=== PATIENT | female | born 1990 | race Caucasian/White ===

== ENCOUNTER 2017-07-20 16:22 | Outpatient (CLI) | payer MEDICAID ==
[~2017-07-20] VITALS: Ht 147.3 cm; Wt 60.4 kg
[2017-07-20 16:40] VITALS: Ht 147.3 cm; Wt 60.4 kg
[2017-07-20 16:41] VITALS: BP 101/60; PULSE 70
[2017-07-20] MEDS ORDERED: PNV11TAB PO (16:43)
--- NOTE | 2017-07-20 17:39 | RADRPT ---
PROCEDURE: US OB biophysical profile. CLINICAL INDICATION: decreased movements TECHNIQUE: Multiple sonographic images of the pelvis were obtained. The images were reviewed on a PACS workstation. COMPARISON: No prior studies are available for comparison. FINDINGS: There is a single viable intrauterine gestation. Cardiac activity is present with 148 beats per min cristela. There is a vertex presentation. The placenta is anterior. There is no evidence of placental abruption. There is a normal amount of amniotic fluid with an TAYLOR = 11.7 cm. Biophysical profile: movement 2/2 tone 2/2. breathing 2/2 TAYLOR 2/2 Total 05/18 RPTAT: AA . IMPRESSION: Normal biophysical profile. . .Adrian Haq MD, MD Date Time Electronically viewed and signed by .Adrian Haq MD, MD on 07/20/2017 17:38 .S/
--- NOTE | 2017-07-20 19:37 | RADRPT ---
PROCEDURE: US OB. CLINICAL INDICATION: Small for gestational age TECHNIQUE: Multiple sonographic images of the uterus were obtained. The images were revi ewed on a PACS workstation. COMPARISON: No prior studies are available for comparison. FINDINGS: There is a single live intrauterine gestation. heart rate is 182 beats per minute. Measurements were made in order to determine age. The results are as follows: BPD = 8.62 cm. HC = 30.37 cm. AC = 30.08 cm. FL = 6.41 cm. Estimated weight is 2284 +/- 343 grams. LMP growth percentile is 13 %. Menstrual age by ultrasound dates is 33 weeks 6 days. The estimated date of delivery is 09/01/2017. Position is cephalic and placenta is anterior grade II. There is no evidence for an abruption or martín centa previa. IMPRESSION: 1. Single live intrauterine gestation of 33 weeks 6 days menstrual age by ultrasound dates. 2. The estimated date of delivery is 09/01/2017. RPTAT: QQ .Gilmer Coleman MD, Date Time Electronically viewed and signed by .Gilmer Coleman MD, on 07/20/2017 19:37 .R/
--- NOTE | 2017-07-20 20:46 | RADRPT ---
PROCEDURE: CERVICAL LENGTH ULTRASOUND CLINICAL INDICATION: labor at 35 weeks gestational age. TECHNIQUE: Trans-vaginal imaging of the cervical canal was performed utilizing montano-scale imaging. Sagittal and transverse images were obtained. Trans-abdominal images were also obtained. The joel ges were reviewed on a PACS workstation. COMPARISON: None. FINDINGS: There is a single live intrauterine . There is no placenta previa. The cervix is closed with a length of 2.7 cm. IMPRESSION: 1. Cervical length is 2.7 cm. RPTAT: QQ .Gilmer Coleman MD, MD Date Time Electronically viewed and signed by .Gilmer Coleman MD, on 07/20/2017 20:46 .R/
--- NOTE | 2017-07-20 21:19 | PN ---
Triage Information Date/Time 07/20/2017 Reason for visit: IUGR Weeks of Gestation 35 weeks /Para Diabetes: none Hypertention: none Objective Vital Signs Date Time Temp Pulse Resp B/P Pulse Ox O2 Delivery O2 Flow Rate FiO2 07/20/17 16:41 98.0 70 101/60 Heart Rate: 130's Heart Rate Comments Category I Contractions: 6-10 Minutes Apart Results/Medications Imaging Results BPP 05/18 Disposition: Discharge Assessment/Plan Antepartum Testing Reassuring Follow up in [facility] clinic on 07/23/2017 FABIO CHANG MD Jul 20, 2017 21:19
--- NOTE | 2017-07-21 01:52 | TRIAGE ---
OB Triage Datetime Report Generated by CPN: 07/21/2017 01:52 Datetime: 07/20/2017 21:12 Stage of : OB Triage Labor Evaluation Frequency: 2-4 Monitor Mode: External Duration (sec)2399: 40-120 Quality: Mild Pattern: Normal: <= 5 Contractions in 10 Minutes Resting Tone [place]: Relaxed Heart Rate FHR Baseline Rate: 135 Monitor Mode: External US FHR Baseline Changes: No Baseline Change Variability: Moderate 6-25 bpm Accelerations: 15X15 Decelerations: None Category: Category I Datetime: 07/20/2017 21:11 Stage of : OB Triage Datetime: 07/20/2017 21:00 Stage of : OB Triage Labor Evaluation Frequency: Irregular Monitor Mode: External Duration (sec)2399: 40-90 Quality: Mild Pattern: Normal: <= 5 Contractions in 10 Minutes Resting Tone [place]: Relaxed Heart Rate FHR Baseline Rate: 135 Monitor Mode: External US FHR Baseline Changes: No Baseline Change Variability: Moderate 6-25 bpm Accelerations: 15X15 Decelerations: None Category: Category I Datetime: 07/20/2017 20:18 Stage of : OB Triage Datetime: 07/20/2017 20:00 Stage of : OB Triage Labor Evaluation Frequency: Occasional Monitor Mode: External Duration (sec)2399: 40-80 Quality: Mild Pattern: Normal: <= 5 Contractions in 10 Minutes Resting Tone [place]: Relaxed Heart Rate FHR Baseline Rate: 135 Monitor Mode: External US Variability: Moderate 6-25 bpm Accelerations: 15X15 Decelerations: None Category: Category I Datetime: 07/20/2017 19:30 Stage of : OB Triage Assessment Type: Triage Maternal Assessment Level of Consciousness: Fully Conscious DTR's/Clonus: DTRs 2+; No Clonus Headache: Denies Blurred Vision: No Respiratory Effort: Unlabored; Regular Rhythm; Equal Expansion Breath Sounds, Left: Clear and Equal Breath Sounds, Right: Clear and Equal Nausea/Vomiting: Denies RUQ Epigastric Pain: Denies Lower Extremities Edema: None Degree: None Upper Extremities Edema: None Degree: None Facial Edema: None Temperature Route: Oral Fall Risk Assessment History of Falling: (0) No Secondary Diagnosis: (0) No Ambulatory Aid: (0) Bedrest/Nurse Assist IV Therapy: (0) No Gait: (0) Normal/Bedrest/Immobile Mental Status: (0) Oriented to Own Ability Fall Score: 0 Fall Risk Score Definition: No Risk: No action required Pain Assessment Pain Scale: 0 Pain Presence: None/Denies Pain Type: N/A Pain Assessment Comments: Pt denies any pain or abdominal cramping at this time. Datetime: 07/20/2017 19:29 Stage of : OB Triage Datetime: 07/20/2017 19:22 Stage of : OB Triage Datetime: 07/20/2017 19:20 Stage of : OB Triage Datetime: 07/20/2017 18:40 Stage of : OB Triage Datetime: 07/20/2017 17:31 Labor Evaluation Frequency: 4-10 Monitor Mode: External Duration (sec)2399: 40-60 Pattern: Normal: <= 5 Contractions in 10 Minutes Resting Tone [place]: Relaxed Heart Rate FHR Baseline Rate: 145 Monitor Mode: External US Variability: Moderate 6-25 bpm Accelerations: 15X15 Decelerations: None Category: Category I Pain Assessment Pain Scale: 0 Pain Presence: None/Denies Pain Type: N/A Pain Goal: 3 Pain Relief Measures: Comfort Measures Datetime: 07/20/2017 17:28 Labor Evaluation Frequency: 0 Monitor Mode: External Pattern: Normal: <= 5 Contractions in 10 Minutes Resting Tone [place]: Relaxed Heart Rate FHR Baseline Rate: 145 Monitor Mode: External US Variability: Moderate 6-25 bpm Accelerations: 15X15 Decelerations: None Category: Category I Pain Assessment Pain Scale: 0 Pain Presence: None/Denies Pain Type: N/A Pain Goal: 3 Pain Relief Measures: Comfort Measures Datetime: 07/20/2017 16:37 Stage of : OB Triage Assessment Type: Triage Maternal Assessment Level of Consciousness: Fully Conscious DTR's/Clonus: DTRs 2+; No Clonus Headache: Denies Blurred Vision: No Respiratory Effort: Unlabored; Regular Rhythm; Equal Expansion Breath Sounds, Left: Clear and Equal Breath Sounds, Right: Clear and Equal Nausea/Vomiting: Denies RUQ Epigastric Pain: Denies Facial Edema: None Temperature Route: Axillary Fall Risk Assessment History of Falling: (0) No Secondary Diagnosis: (0) No Ambulatory Aid: (0) Bedrest/Nurse Assist IV Therapy: (0) No Gait: (0) Normal/Bedrest/Immobile Mental Status: (0) Oriented to Own Ability Fall Score: 0 Fall Risk Score Definition: No Risk: No action required Labor Evaluation Frequency: 0 Monitor Mode: External Pattern: Normal: <= 5 Contractions in 10 Minutes Resting Tone [place]: Relaxed Heart Rate FHR Baseline Rate: 145 Monitor Mode: External US Variability: Moderate 6-25 bpm Decelerations: None Category: Category I Pain Assessment Pain Scale: 0 Pain Presence: None/Denies Pain Type: N/A Pain Goal: 3 Pain Relief Measures: Comfort Measures Datetime: 07/20/2017 16:27 Time of Arrival: 07/20/2017 16:15 EGA: 35.2 Arrived By: Ambulatory Arrived From: Other Unit in Hospital Chief Complaint: FROM NST FOR EXTENDED MONITORING, Movement: Present Contractions: Denies/Absent Rupture of Membranes: Denies Vaginal Bleeding: None Vaginal Discharge: Denies Recent Sexual Intercouse: Denies Abdominal Trauma: Not Applicable Patient Complaints: None Time Provider Notified: 07/20/2017 18:40 Provider Notified: Initial Plan: MONITOR, EFW, BPP
--- NOTE | 2017-07-22 14:54 | NSTRPT ---
NST Information Datetime Report Generated by CPN: 07/22/2017 14:54 Datetime: 07/20/2017 14:44 NST Information EGA: 35.2 Datetime: 07/20/2017 14:25 Test Number: 1 Time on Monitor: 07/20/2017 14:59 Time off Monitor: 07/20/2017 15:55 NST Duration (Min): 56 Reason for NST: IUGR Test and Monitor Explained: Monitor Explained; Test Explained; Verbalized Understanding Pulse: 64 Resp: 16 SBP: 97 DBP: 60 Test Evaluation NST Interventions: Reposition Patient Patient States Movement: Present Contraction Frequency: x3, denies FHR Baseline : 140 Variability: Moderate 6-25bpm Accelerations: 15X15 Decelerations: Late; Variable FHR Category: Category II NST Results: Non-Reactive Comments: To u/s, TAYLOR 13.2cm, cephalic strip reviewed by Dr. Canseco. Recommends extended monitoring in Triage. 1543-Report called t liyah Clark (covering Dr Peng), orders received. Report called to Glenis GARCIA. POC explained to pt. 1600 -Pt to triage, accomp by Jasmina Macias. Electronically Signed By E-Signature: with User ID: [id number]
== END 2017-07-20 21:28 | disposition home or self-care (01) ==
LOC: OBT 16:22 → L-D 16:24 → OBT 21:28
PROVIDERS: ATTEND Obstetrics & Gynecology
DX: O36.5930 Maternal care for other known or suspected poor fetal growth, third trimester, not applicable or unspecified (principal); Z3A.35 35 weeks gestation of pregnancy
CPT/HCPCS: 76815; 76817; 76818; Z7500; G0463

== ENCOUNTER 2017-07-31 13:27 | Outpatient (CLI) | payer MEDICAID ==
[~2017-07-31] VITALS: Ht 147.3 cm; Wt 61.8 kg
[~2017-07-31 13:27] MED LIST: PNV11TAB PO
[2017-07-31 13:32] VITALS: Ht 147.3 cm; Wt 61.8 kg
[2017-07-31 13:33] VITALS: BP 97/55; PULSE 71; RESP 16
--- NOTE | 2017-07-31 14:06 | RADRPT ---
PROCEDURE: US evaluation of amniotic fluid volume. CLINICAL INDICATION: Decreased motion. TECHNIQUE: Multiple sonographic images of the gravid uterus were obtained utilizing montano-scale joel ging. Sagittal and transverse images were obtained. The images were reviewed on a PACS workstation . TAYLOR was measured. COMPARISON: 07/20/2017. FINDINGS: There is a single live intrauterine . heart rate is 170 beats per minute. Position is cephalic. Placenta is anterior grade II with no abruption or previa. TAYLOR is 7.0 cm. (Normal = 5-20 cm.) IMPRESSION: 1. TAYLOR is 7.0 cm. RPTAT: QQ .Gilmer Coleman MD, Date Time Electronically viewed and signed by .Gilmer Coleman MD, on 07/31/2017 14:05 .R/
--- NOTE | 2017-07-31 14:28 | PN ---
Triage Information Date/Time July 31, 2017 Reason for visit: IUGR (17 by perinatologist for antepartum testing following antepartum testing ) Weeks of Gestation 36 weeks and 6 days /Para 3 para 2 Diabetes: none Hypertention: none Objective Vital Signs Date Time Temp Pulse Resp B/P Pulse Ox O2 Delivery O2 Flow Rate FiO2 07/31/17 13:33 98.0 71 16 97/55 Heart Rate: 150's Heart Rate Comments heart tones are reactive Contractions: None Exam Deferred Results/Medications Imaging Results TAYLOR is 7.0 cm. Disposition: Discharge Assessment/Plan We will follow with biweekly and on a stress test on by physical profile CATIA MOYA MD Jul 31, 2017 14:28
--- NOTE | 2017-07-31 14:34 | TRIAGE ---
OB Triage Datetime Report Generated by CPN: 07/31/2017 14:33 Datetime: 07/31/2017 14:21 Labor Evaluation Frequency: x1 Monitor Mode: External Duration (sec)2399: 70 Quality: Mild Pattern: Normal: <= 5 Contractions in 10 Minutes Resting Tone [place]: Relaxed Heart Rate FHR Baseline Rate: 145 Variability: Moderate 6-25 bpm Accelerations: 15X15 Decelerations: None Category: Category I Comments: reactive nst Pain Presence: None/Denies Pain Type: N/A Datetime: 07/31/2017 13:36 Assessment Type: Triage Maternal Assessment Level of Consciousness: Fully Conscious DTR's/Clonus: DTRs 2+; No Clonus Headache: Denies Blurred Vision: No Respiratory Effort: Unlabored; Regular Rhythm; Equal Expansion Breath Sounds, Left: Clear and Equal Breath Sounds, Right: Clear and Equal Nausea/Vomiting: Denies RUQ Epigastric Pain: Denies Lower Extremities Edema: None Degree: None Upper Extremities Edema: None Degree: None Facial Edema: None Fall Risk Assessment History of Falling: (0) No Secondary Diagnosis: (0) No Ambulatory Aid: (0) Bedrest/Nurse Assist IV Therapy: (0) No Gait: (0) Normal/Bedrest/Immobile Mental Status: (0) Oriented to Own Ability Fall Score: 0 Fall Risk Score Definition: No Risk: No action required Datetime: 07/31/2017 13:20 Time of Arrival: 07/31/2017 13:20 EGA: 36.6 Arrived By: Ambulatory Arrived From: Home Chief Complaint: f/u for nst and ashly due to questinable nst in nst clinic Movement: Present Contractions: Occasional Rupture of Membranes: Denies Vaginal Bleeding: None Vaginal Discharge: Denies Recent Sexual Intercouse: Denies Abdominal Trauma: Not Applicable Patient Complaints: None Time Provider Notified: 07/31/2017 14:11 Provider Notified: Datetime: 07/20/2017 21:12 Pain Assessment Pain Scale: 0 Pain Presence: None/Denies Pain Type: N/A Pain Assessment Comments: Pt continues to deny any pain or cramping Datetime: 07/20/2017 21:08 Stage of : OB Triage Datetime: 07/20/2017 19:30 Fall Score: 0 Fall Risk Score Definition: No Risk: No action required Datetime: 07/20/2017 16:37 Fall Score: 0 Fall Risk Score Definition: No Risk: No action required Datetime: 07/20/2017 16:27 EGA: 35.2
== END 2017-07-31 14:30 | disposition home or self-care (01) ==
LOC: OBT 13:27 → L-D 13:28 → OBT 14:30
PROVIDERS: ATTEND Obstetrics & Gynecology
DX: O36.8130 Decreased fetal movements, third trimester, not applicable or unspecified (principal); Z3A.36 36 weeks gestation of pregnancy
CPT/HCPCS: 76815; Z7500; G0463

== ENCOUNTER 2017-08-09 12:05 | Inpatient (IN) | payer MEDICAID ==
[~2017-08-09] VITALS: Ht 147.3 cm; Wt 61.5 kg
[2017-08-09 12:41] VITALS: Ht 147.3 cm; Wt 61.5 kg
[2017-08-09] MEDS: LACTATED RINGER'S 1,000 ML IV SCH ×2 (13:19→21:33)
[2017-08-09] MEDS ORDERED: METHYLERGONOVINE 0.2 MG INJ IM PRN (13:30)
[2017-08-09] MEDS ORDERED: MINERAL OIL LIGHT 10 ML VIAL TOP ONE (13:30)
[2017-08-09] MEDS ORDERED: OXYTOCIN 30 UNITS/LR 500 ML IV SCH ×2 (13:30)
[2017-08-09] MEDS ORDERED: MISOPROSTOL 200 MCG TAB PR PRN (13:30)
[2017-08-09] MEDS ORDERED: LIDOCAINE 1% (MPF) 30 ML INJ INJ PRN (13:30)
[2017-08-09] MEDS ORDERED: OXYTOCIN 30 UNITS/LR 500 ML IV PRN (13:30)
[2017-08-09] MEDS ORDERED: CARBOPROST 250 MCG INJ IM PRN (13:30)
[2017-08-09] MEDS ORDERED: BUTORPHANOL 2 MG INJ IV PRN (13:30)
--- NOTE | 2017-08-09 14:09 | HP ---
Date/Time of Note Date/Time of Note DATE: 08/09/17 TIME: 14:06 OB - History Hx of Present Free Text/Dictation Admitted for induction of labor per perinatologist at 38 weeks and 1 day because of decreased amniotic fluid Last Menstrual Period: Nov 16, 2016 Estimated Due Date: Aug 22, 2017 : 3 Para: 2 Care: Good Care Ultrasounds: Normal mid trimester US Obstetrical Complications: Growth Restriction Medical Complications: None Past Family/Social History * Past Medical, Surgical, Family and Obstetric Histories reviewed from chart. Blood Type: O+ Rubella: immune RPR/VDRL: Negative GBS Status: Positive HBsAG: Negative OB Admission Exam Physical Exam HEENT: WNL Heart: Rhythm Normal Lungs: Clear, Equal Abdomen: WNL Extremities: Normal Reflexes: Normal Cervical Dilatation: Fingertip Effacement: 0% Station: -3 Membranes: Intact Heart Rate: 140's Accelerations: Accelerations Present Decelerations: No Decelerations Varibility: Marked Contractions on Admission: None Last 72 hours Lab Results CBC & BMP 08/09/17 13:17 OB Assessment/Plan Reason for admission: induction of labor Other Assessment: 38 weeks and 1 day gestation Growth restricted infant Decrease amniotic fluid Other plan: Per perinatologist admitted for induction of labor CATIA MOYA MD Aug 09, 2017 14:09
[2017-08-09] MEDS ORDERED: AMPICILLIN 2 GM/NS (PMX) 100 ML IV ONE (14:30)
[2017-08-09 15:06] VITALS: BP 99/64; PULSE 75; RESP 18
[2017-08-09] MEDS: OXYTOCIN 30 UNITS/LR 500 ML IV SCH (16:01)
[2017-08-09] MEDS ORDERED: LACTATED RINGER'S 1,000 ML IV PRN (17:00)
[2017-08-09] MEDS: AMPICILLIN 1 GM/NS (PMX) 50 ML IV SCH ×2 (18:29→21:32)
[2017-08-10] MEDS: AMPICILLIN 1 GM/NS (PMX) 50 ML IV SCH ×6 (02:02→22:11)
[2017-08-10] MEDS: LACTATED RINGER'S 1,000 ML IV SCH ×2 (04:50→15:02)
[2017-08-10] MEDS: OXYTOCIN 30 UNITS/LR 500 ML IV SCH ×2 (06:00→15:03)
--- NOTE | 2017-08-10 14:21 | PN ---
Date/Time of Note Date/Time of Note DATE: 08/10/17 TIME: 14:18 OB Subjective Subjective Subjective No complaint of labor contractions OB Objective Objective Objective Vital signs stable General physical exam is unchanged Cervix is 50% on 2 cm present with vertex at -3 station OB Assessment/Plan Other Assessment: Growth restricted 38+ weeks Perinatologist recommend induction Decrease amniotic fluid Other plan: Restart Pitocin augmentation of labor CATIA MOYA MD Aug 10, 2017 14:21
[2017-08-11] MEDS: AMPICILLIN 1 GM/NS (PMX) 50 ML IV SCH ×5 (02:43→18:02)
[2017-08-11] MEDS: LACTATED RINGER'S 1,000 ML IV SCH ×5 (02:43→17:00)
[2017-08-11] MEDS ORDERED: FENTAnyl 2MCG/ML-ROPIV 0.2% 100 ML ONE (09:07)
[2017-08-11] MEDS ORDERED: ONDANSETRON 4 MG INJ IV PRN (09:30)
[2017-08-11] MEDS ORDERED: HYDROmorphONE 0.5 MG/0.5 ML SYG IV PRN ×2 (09:30)
[2017-08-11] MEDS ORDERED: DIPHENHYDRAMINE 50 MG INJ IV PRN (09:30)
[2017-08-11] MEDS ORDERED: NALOXONE (0.4 MG/ML) INJ IV PRN (09:30)
[2017-08-11] MEDS ORDERED: FENTAnyl 2MCG/ML-ROPIV 0.2% 100 ML BAG EPI SCH (09:30)
--- NOTE | 2017-08-11 14:44 | NSTRPT ---
NST Information Datetime Report Generated by CPN: 08/11/2017 14:44 Datetime: 08/09/2017 09:15 NST Information EGA: 38.1 Test Number: 6 Time on Monitor: 08/09/2017 09:30 Time off Monitor: 08/09/2017 10:20 NST Duration (Min): 50 Reason for NST: IUGR Test and Monitor Explained: Monitor Explained; Test Explained; Verbalized Understanding Pulse: 75 Resp: 18 SBP: 112 DBP: 69 Test Evaluation NST Interventions: PO Hydration Patient States Movement: Present Contraction Frequency: OCCASIONAL, PT DENIES FHR Baseline : 145 Variability: Moderate 6-25bpm Accelerations: 15X15 Decelerations: None FHR Category: Category I NST Results: Reactive Provider Notified: Dr Peng Comments: To u/s TAYLOR-6.8 CM, CEP, 0952-Report called to Dr Canseco, recommends induction of labor. 0955-Call placed to Dr Peng, rep ort given, inc Dr Canseco's recommendation. Pt has 2 edc's, Dr Peng requests verification of edc. 1 000-Call placed to Dr Peng EDC of 08/22, confirmed by 13wk NT u/s. Orders received to admit to L_ D for induction of labor. 1004-Report called to Glenis GARCIA/L_D. POC discussed with pt. Pt calling sp ouse. 1023- Pt to L_D, instructed to go directly to L_D, states understanding and denies further qu estions at this time. Electronically Signed By E-Signature: with User ID: [email or web address] Datetime: 08/06/2017 13:12 NST Information EGA: 37.5 NST Duration (Min): 28 Datetime: 08/03/2017 13:05 NST Information EGA: 37.2 NST Duration (Min): 26 Datetime: 07/30/2017 13:20 NST Information EGA: 36.5 NST Duration (Min): 73 Datetime: 07/27/2017 14:30 NST Information EGA: 36.2 NST Duration (Min): 23 Datetime: 07/23/2017 13:30 NST Information EGA: 35.5 NST Duration (Min): 25 Datetime: 07/20/2017 14:44 NST Information EGA: 35.2 Datetime: 07/20/2017 14:25 NST Duration (Min): 56
[2017-08-11] MEDS ORDERED: MINERAL OIL LIGHT 10 ML VIAL TOP ONE (17:00)
--- NOTE | 2017-08-11 18:20 | PN ---
Date/Time of Note Date/Time of Note DATE: 08/11/17 TIME: 18:19 OB Subjective Subjective Subjective Complaint of labor contractions OB Objective Objective Objective Vital signs stable General physical exam is unchanged Membranes were artificially ruptured Pitocin augmentation of labor was restarted OB Assessment/Plan Reason for admission: induction of labor Other Assessment: 37+ weeks gestation Possible growth retarded infant Other plan: Augment labor with Pitocin CATIA MOYA MD Aug 11, 2017 18:20
--- NOTE | 2017-08-11 18:54 | LDN ---
Date/Time of Note Date/Time of Note DATE: 08/11/17 TIME: 18:51 Delivery Summary Normal spontaneous vaginal delivery of a viable over intact perineum Weeks of Gestation 38+ Placenta Delivered: Spontaneously (Placenta was circumvale), Intact & Complete Meconium: none Episiotomy: No Perineal laceration: 0 Anesthesia type: Epidural Estimated blood loss: 300 Sponge & Needle done & correct: Yes All needle counts correct: Yes Any foreign bodies felt in the: No Problems: Delivery Information Sex Sex: male Apgars 1 Minute: 9 5 Minute: 9 Suctioning Nose & mouth suctioned at kristel: Yes Delee suction performed: No Umbilical Cord Umbilical cord with: 3 Vessels Cord presentations: no nuchal cord Cord Blood was obtained: Yes Mother & Baby Disposition Disposition Mom & Baby to Maternity; Good: Yes (Mother and baby were recovered in good condition) Mom transferred to: Other (Maternity) Baby to NICU: No CATIA MOYA MD Aug 11, 2017 18:54
[2017-08-11 21:00] VITALS: BP 102/56; PULSE 56; RESP 18
[2017-08-11] MEDS ORDERED: MISOPROSTOL 200 MCG TAB PR PRN (22:00)
[2017-08-11] MEDS ORDERED: HYDROCODONE/APAP (5/325) TAB PO PRN ×2 (22:00)
[2017-08-11] MEDS ORDERED: LANOLIN 7 GM TUBE TOP PRN (22:00)
[2017-08-11] MEDS ORDERED: DIBUCAINE 1% 30 GM OINT PR PRN (22:00)
[2017-08-11] MEDS ORDERED: WITCH HAZEL/GLYCERIN PAD PR PRN (22:00)
[2017-08-11] MEDS ORDERED: CARBOPROST 250 MCG INJ IM PRN (22:00)
[2017-08-11] MEDS ORDERED: METHYLERGONOVINE 0.2 MG INJ IM PRN (22:00)
[2017-08-11] MEDS ORDERED: OXYTOCIN 30 UNITS/LR 500 ML IV PRN (22:00)
[2017-08-11] MEDS ORDERED: BENZOCAINE 20% 56 ML SPRAY TOP PRN (22:00)
[2017-08-11] MEDS ORDERED: ZOLPIDEM 5 MG TAB PO PRN (22:00)
[2017-08-11] MEDS: CEPHALEXIN 500 MG CAP PO SCH (23:57)
[2017-08-11] MEDS: IBUPROFEN 600 MG TAB PO SCH (23:57)
[2017-08-12] VITALS (19 sets, daily range): BP systolic 98–140; BP diastolic 55–82; PULSE 48–65; RESP 11–18
[2017-08-12] MEDS: IBUPROFEN 600 MG TAB PO SCH ×3 (06:02→18:35)
[2017-08-12] MEDS: CEPHALEXIN 500 MG CAP PO SCH ×3 (06:03→18:35)
[2017-08-12] MEDS: MAGNESIUM HYDROXIDE 30ML CUP PO SCH ×2 (08:56→21:19)
[2017-08-12] MEDS: SENNA/DOCUSATE NA (8.6MG/50MG) TAB PO SCH ×2 (08:56→21:19)
[2017-08-12] MEDS: LACTATED RINGER'S 1,000 ML IV* SCH ×4 (08:56→21:54)
--- NOTE | 2017-08-12 13:04 | PN ---
Date/Time of Note Date/Time of Note DATE: 08/12/17 TIME: 13:01 Assessment/Plan VTE Prophylaxis VTE Prophylaxis Intervention: ambulation Lines/Catheters IV Catheter Type (from Nrs): Peripheral IV Assessment/Plan Assessment/Plan S/P vaginal delivery desires sterilization will proceed with BTL Subjective 24 Hr Interval Summary Free Text/Dictation S/P vaginal delivery desires sterilization Constitutional: improved, no complaints Eyes: no complaints ENT: no complaints Respiratory: no complaints Cardiovascular: no complaints Gastrointestinal: no complaints Genitourinary: no complaints Musculoskeletal: no complaints Skin: no complaints Neurologic: no complaints Endocrine: no complaints Lymphatic: no complaints Psychological: nl mood/affect, no complaints Immunologic: no complaints Exam/Review of Systems Vital Signs Vitals Vital Signs Date Time Temp Pulse Resp B/P Pulse Ox O2 Delivery O2 Flow Rate FiO2 08/12/17 12:00 98.7 65 18 105/71 Room Air Intake and Output 08/11/17 08/11/17 08/12/17 15:00 23:00 07:00 Intake Total 250 ml 500 ml Output Total 1700 ml 800 ml Balance -1450 ml -300 ml Exam fundus: firm lochia moderate Constitutional: alert, oriented, well developed Psych: nl mood/affect, no complaints Head: atraumatic, normocephalic Eyes: EOMI, PERRL, nl conjunctiva, nl lids, nl sclera ENMT: nl external ears & nose, nl lips & teeth, nl nasal mucosa & septum Neck: non-tender, supple Respiratory: clear to auscultation, normal air movement Cardiovascular: nl pulses, regular rate and rhythm Gastrointestinal: nl liver, spleen, non-tender, soft Musculoskeletal: nl extremities to inspection, nl gait and stance Extremities: normal pulses Neurological: FOREIGN CLERK II-XII intact, nl mental status, nl speech, nl strength Skin: nl turgor, No rash or lesions Lymph: nl lymph nodes Results Result Diagram: 08/12/17 0730 Results 24 hrs Laboratory Tests Test 08/12/17 07:30 White Blood Count 9.1 Red Blood Count 3.34 L Hemoglobin 9.8 #L Hematocrit 30.0 L Mean Corpuscular Volume 89.8 Mean Corpuscular Hemoglobin 29.3 Mean Corpuscular Hemoglobin Concent 32.7 Red Cell Distribution Width 13.3 Platelet Count 118 #L Mean Platelet Volume 12.0 H Neutrophils % 70.0 Lymphocytes % 20.2 Monocytes % 8.0 Eosinophils % 1.1 Basophils % 0.3 Nucleated Red Blood Cells % 0.0 Neutrophils # 6.4 Lymphocytes # 1.8 Monocytes # 0.7 Eosinophils # 0.1 Basophils # 0.0 Nucleated Red Blood Cells # 0.0 Medications Medications Current Medications Oxytocin/Lactated Ringer's 500 ml @ 125 mls/hr ONCE IV ; Start 08/09/17 at 13: 30 Lactated Ringer's (Lr) 1,000 ml @ 125 mls/hr Q8H IV* Last administered on 08/12 08:56; Admin Dose 125 MLS/HR; Start 08/11/17 at 21:54 Ibuprofen (Motrin) 600 mg Q6 PO Last administered on 08/12/17 06:02; Admin Dose 600 MG; Start 08/12/17 at 00:00 Acetaminophen/ Hydrocodone Bitart ([place] (5/325)) 1 tab Q4H PRN PO PAIN LEVEL 1 -5; Start 08/11/17 at 22:00 Acetaminophen/ Hydrocodone Bitart ([place] (5/325)) 2 tab Q4H PRN PO PAIN LEVEL 6 -10; Start 08/11/17 at 22:00 Zolpidem Tartrate (Ambien) 5 mg QHS PRN PO INSOMNIA; Start 08/11/17 at 22:00 Senna/Docusate Sodium (Senokot-S) 1 tab BID PO ; Start 08/12/17 at 09:00 Magnesium Hydroxide (Milk Of Mag) 30 ml Q12 PO ; Start 08/12/17 at 09:00 Measles/Mumps/ Rubella Vaccine Live (Mmr Ii Vaccine) 0.5 ml ONCE ONCE SC* ; Start 08/13/17 at 09:00; Stop 08/13/17 at 09:01 Diphtheria/ Tetanus/Acell Pertussis (Adacel) 0.5 ml ONCE ONCE IM* ; Start at 09:00; Stop 08/13/17 at 09:01 Varicella Virus Vaccine Live 1350 unit 1,350 unit ONCE ONCE SC* ; Start at 09:00; Stop 08/13/17 at 09:01 Oxytocin/Lactated Ringer's 500 ml @ 0 mls/hr ONCE PRN IV For Hemorrhage Management; Start 08/11/17 at 22:00 Methylergonovine Maleate (Methergine) 0.2 mg ONCE PRN IM VAGINAL BLEEDING; Start 08/11/17 at 22:00 Carboprost Tromethamine (Hemabate) 250 mcg ONCE PRN IM VAGINAL BLEEDING; Start 08/11/17 at 22:00 Misoprostol (Cytotec) 1,000 mcg ONCE PRN NC VAGINAL BLEEDING; Start 08/11/17 at 22:00 Cephalexin (Keflex) 500 mg Q6 PO Last administered on 08/12/17t 06:03; Admin Dose 500 MG; Start 08/12/17 at 00:00 Influenza Virus Vaccine (Fluzone) 0.5 ml ONCE ONCE IM* ; Start 08/13/17 at 12:00 ; Stop 08/13/17 at 12:01 CATIA MOYA MD Aug 12, 2017 13:04
--- NOTE | 2017-08-12 13:04 | PN ---
Date/Time of Note Date/Time of Note DATE: 08/12/17 TIME: 13:01 Assessment/Plan VTE Prophylaxis VTE Prophylaxis Intervention: ambulation Lines/Catheters IV Catheter Type (from Nrs): Peripheral IV Assessment/Plan Assessment/Plan S/P vaginal delivery desires sterilization will proceed with BTL Subjective 24 Hr Interval Summary Free Text/Dictation S/P vaginal delivery desires sterilization Constitutional: improved, no complaints Eyes: no complaints ENT: no complaints Respiratory: no complaints Cardiovascular: no complaints Gastrointestinal: no complaints Genitourinary: no complaints Musculoskeletal: no complaints Skin: no complaints Neurologic: no complaints Endocrine: no complaints Lymphatic: no complaints Psychological: nl mood/affect, no complaints Immunologic: no complaints Exam/Review of Systems Vital Signs Vitals Vital Signs Date Time Temp Pulse Resp B/P Pulse Ox O2 Delivery O2 Flow Rate FiO2 08/12/17 12:00 98.7 65 18 105/71 Room Air Intake and Output 08/11/17 08/11/17 08/12/17 15:00 23:00 07:00 Intake Total 250 ml 500 ml Output Total 1700 ml 800 ml Balance -1450 ml -300 ml Exam fundus: firm lochia moderate Constitutional: alert, oriented, well developed Psych: nl mood/affect, no complaints Head: atraumatic, normocephalic Eyes: EOMI, PERRL, nl conjunctiva, nl lids, nl sclera ENMT: nl external ears & nose, nl lips & teeth, nl nasal mucosa & septum Neck: non-tender, supple Respiratory: clear to auscultation, normal air movement Cardiovascular: nl pulses, regular rate and rhythm Gastrointestinal: nl liver, spleen, non-tender, soft Musculoskeletal: nl extremities to inspection, nl gait and stance Extremities: normal pulses Neurological: TODDLER CAREGIVER II-XII intact, nl mental status, nl speech, nl strength Skin: nl turgor, No rash or lesions Lymph: nl lymph nodes Results Result Diagram: 08/12/17 0730 Results 24 hrs Laboratory Tests Test 08/12/17 07:30 White Blood Count 9.1 Red Blood Count 3.34 L Hemoglobin 9.8 #L Hematocrit 30.0 L Mean Corpuscular Volume 89.8 Mean Corpuscular Hemoglobin 29.3 Mean Corpuscular Hemoglobin Concent 32.7 Red Cell Distribution Width 13.3 Platelet Count 118 #L Mean Platelet Volume 12.0 H Neutrophils % 70.0 Lymphocytes % 20.2 Monocytes % 8.0 Eosinophils % 1.1 Basophils % 0.3 Nucleated Red Blood Cells % 0.0 Neutrophils # 6.4 Lymphocytes # 1.8 Monocytes # 0.7 Eosinophils # 0.1 Basophils # 0.0 Nucleated Red Blood Cells # 0.0 Medications Medications Current Medications Oxytocin/Lactated Ringer's 500 ml @ 125 mls/hr ONCE IV ; Start 08/09/17 at 13: 30 Lactated Ringer's (Lr) 1,000 ml @ 125 mls/hr Q8H IV* Last administered on 08/12 08:56; Admin Dose 125 MLS/HR; Start 08/11/17 at 21:54 Ibuprofen (Motrin) 600 mg Q6 PO Last administered on 08/12/17 06:02; Admin Dose 600 MG; Start 08/12/17 at 00:00 Acetaminophen/ Hydrocodone Bitart ([place] (5/325)) 1 tab Q4H PRN PO PAIN LEVEL 1 -5; Start 08/11/17 at 22:00 Acetaminophen/ Hydrocodone Bitart ([place] (5/325)) 2 tab Q4H PRN PO PAIN LEVEL 6 -10; Start 08/11/17 at 22:00 Zolpidem Tartrate (Ambien) 5 mg QHS PRN PO INSOMNIA; Start 08/11/17 at 22:00 Senna/Docusate Sodium (Senokot-S) 1 tab BID PO ; Start 08/12/17 at 09:00 Magnesium Hydroxide (Milk Of Mag) 30 ml Q12 PO ; Start 08/12/17 at 09:00 Measles/Mumps/ Rubella Vaccine Live (Mmr Ii Vaccine) 0.5 ml ONCE ONCE SC* ; Start 08/13/17 at 09:00; Stop 08/13/17 at 09:01 Diphtheria/ Tetanus/Acell Pertussis (Adacel) 0.5 ml ONCE ONCE IM* ; Start at 09:00; Stop 08/13/17 at 09:01 Varicella Virus Vaccine Live 1350 unit 1,350 unit ONCE ONCE SC* ; Start at 09:00; Stop 08/13/17 at 09:01 Oxytocin/Lactated Ringer's 500 ml @ 0 mls/hr ONCE PRN IV For Hemorrhage Management; Start 08/11/17 at 22:00 Methylergonovine Maleate (Methergine) 0.2 mg ONCE PRN IM VAGINAL BLEEDING; Start 08/11/17 at 22:00 Carboprost Tromethamine (Hemabate) 250 mcg ONCE PRN IM VAGINAL BLEEDING; Start 08/11/17 at 22:00 Misoprostol (Cytotec) 1,000 mcg ONCE PRN DC VAGINAL BLEEDING; Start 08/11/17 at 22:00 Cephalexin (Keflex) 500 mg Q6 PO Last administered on 08/12/17t 06:03; Admin Dose 500 MG; Start 08/12/17 at 00:00 Influenza Virus Vaccine (Fluzone) 0.5 ml ONCE ONCE IM* ; Start 08/13/17 at 12:00 ; Stop 08/13/17 at 12:01 CATIA MOYA MD Aug 12, 2017 13:04
[2017-08-12] MEDS ORDERED: BUPIVACAINE 0.5%/EPI (SDV) 30 ML INJ ONE (13:55)
[2017-08-12] MEDS ORDERED: CEFAZOLIN 1 GM INJ ONE (14:42)
[2017-08-12] MEDS ORDERED: KETOROLAC 30 MG INJ ONE (14:43)
[2017-08-12] MEDS ORDERED: ONDANSETRON 4 MG INJ ONE (14:43)
[2017-08-12] MEDS ORDERED: DEXAMETHASONE 4 MG/ML 1 ML INJ ONE (14:43)
[2017-08-12] MEDS ORDERED: METOCLOPRAMIDE 10 MG INJ ONE (14:43)
--- NOTE | 2017-08-12 15:14 | OPR ---
Operative Report Planned Procedure Procedure date Aug 12, 2017 Procedure(s) Bilateral tubal ligation Performed by see signature line Anesthesiologist: STACY MANCINI MD Pre-procedure diagnosis Multiparity with desire for sterilization Status post vaginal delivery Anesthesia Type: spinal Procedure Description The patient was placed on the OR table in supine position. Spinal anesthesia was placed. A Mae catheter was then inserted into urinary bladder under aseptic condition. After induction of spinal anesthesia, with the patient in supine position, abdominal area was prepped and draped for usual tubal ligation procedure. Under satisfactory anesthesia, a small incision 2 to 3 cm in length was placed just below belly button, incision extended laterally to 1.5 cm lateral to the linea nigra on either side. Incision was carried down with sharp and blunt dissection until fascia was reached. Anterior recti muscle fascia was incised in the midportion. Incision extended laterally to the border of the skin incision. Peritoneum was visualized. Avoiding bowel or bladder, incision was made in peritoneum, which was extended laterally to the border of the skin incision. Two [employer] retractors were placed inside the incision. Incision was brought up to the level of the left fallopian tube. Fallopian tube was raised in the mid portion. A clamp was placed below the fimbriated end, most of the fallopian tube from the mesosalpinx traversing the isthmus portion of the tube. Another clamp was placed just below the first and 0 Vicryl tie was used to tie the mesosalpinx and the stump of the fallopian tube on the proximal side. Another stitch of the same kind was used for adequate hemostasis. Hemostasis appeared to be secure on ligated sites of the fallopian tube. Tube was incised above the stitched area. Same procedure was done on the fallopian tube on opposite side. Hemostasis appeared to be secure on ligated sites of either fallopian tubes. Ovaries were within normal limits. Uterus appears to be size. Announcing needle, lap, sponge and instrument count to be correct, abdomen was closed in layers as follows: Peritoneum with running stitches of #1 Vicryl, fascia edges of #1 Vicryl, subcutaneous tissue with running stitches of #1 Vicryl, and skin was reapproximated using subcuticular stitches of 4-0 Monocryl on a PS2 needle and also Dermabond was placed on the incision. The patient tolerated the procedure very well and was transferred to postanesthesia recovery room in stable and good condition. ESTIMATED BLOOD LOSS: Less than 5 mL. Post-Procedure Post-procedure diagnosis Status post bilateral tubal ligation Findings: Normal appearing right and left fallopian tubes and ovaries Estimated blood loss: minimal Specimen(s): yes (see below) Specimen(s) description Segments of right and left fallopian tubes Grafts/Implants: no Complication(s): no Pt Condition post procedure: stable Disposition: PACU Physician Certification I, the undersigned physician, hereby certify that I have discussed the procedure described in this consent form with this patient (or the patient's legal branch service representative), including: * The risk and benefits of the procedure; * Any adverse reactions that may reasonably be expected to occur; * Any alternative efficacious methods of treatment which may be medically viable ; * The potential problems that may occur during recuperation; * Potential for blood transfusion and associated risks/benefits; and * Any research or economic interest I may have regarding this treatment. I further certify that the patient/legally responsible person was encouraged to ask question and that all questions were answered. CATIA MOYA MD Aug 12, 2017 15:14
[2017-08-12] MEDS ORDERED: LACTATED RINGER'S 1,000 ML IV SCH (15:15)
[2017-08-12] MEDS ORDERED: MEPERIDINE 100 MG INJ ONE (15:23)
[2017-08-12] MEDS ORDERED: BUTORPHANOL 2 MG INJ IM ONE (15:30)
--- NOTE | 2017-08-12 17:15 | DS ---
Date/Time of Note Date/Time of Note Home following day DATE: 08/12/17 TIME: 17:14 Obstetrical Discharge Record Final Diagnosis Final Diagnosis: Term delivered Other Final Diagnosis Status post vaginal delivery Status post bilateral tubal ligation Vaginal Delivery Obstetrical Delivery: Spontaneous, Bilateral Tubal Ligation Complications Other (Growth retarded infant) Augmentation: Yes Condition on Discharge Physical Assessment Last Vitals: See nurse's notes Voiding: Yes Bowel Movement: Yes Breast: Soft, non-tender, Filling Fundus: Firm Abdomen and Incision: Abdomen is soft bowel sounds present Incision is covered Calf Tenderness: No Patient Condition: Good CATIA MOYA MD Aug 12, 2017 17:15
--- NOTE | 2017-08-12 17:17 | PD.PPDC ---
[facility] Discharge Instruction Provider Information Physician Information 27-year-old female had bilateral tubal ligation after vaginal delivery and hospital Diagnosis Final Diagnosis: Status post vaginal delivery and bilateral tubal ligation Condition Patient Condition: Good Diet Diet: Resume Regular Diet Activity/Restrictions Activity: Normal Activity May Shower Restrictions: Nothing in the Vagina Return to Work or School: Sep 27, 2017 Follow-up Follow-up with Physician: 4, Week/Weeks (In clinic) Return to clinic for OB Instructions: Breast Tenderness Depression Comment: Pelvic rest and no heart activity for 6 weeks CATIA MOYA MD Aug 12, 2017 17:16
[2017-08-12] MEDS ORDERED: IBUP-1542 PO (17:18)
[2017-08-13] MEDS: IBUPROFEN 600 MG TAB PO SCH ×4 (00:06→17:50)
[2017-08-13] MEDS: CEPHALEXIN 500 MG CAP PO SCH ×4 (00:08→17:51)
[2017-08-13 04:00] VITALS: BP 114/64; PULSE 59; RESP 18
[2017-08-13] MEDS: LACTATED RINGER'S 1,000 ML IV* SCH (05:54)
[2017-08-13 08:10] VITALS: BP 114/75; PULSE 50; RESP 18
[2017-08-13] MEDS ORDERED: MEASLES,MUMPS,RUBELLA VACCINE INJ SC* ONE (09:00)
[2017-08-13] MEDS ORDERED: VARICELLA VACCINE LIVE/PF 1,350 UNIT/0.5 ML ML SC* ONE (09:00)
[2017-08-13] MEDS ORDERED: DIPHTH/TET/ACEL PERTUSS (ADULT) 0.5 ML VIAL IM* ONE (09:00)
[2017-08-13] MEDS: SENNA/DOCUSATE NA (8.6MG/50MG) TAB PO SCH (10:03)
[2017-08-13] MEDS: MAGNESIUM HYDROXIDE 30ML CUP PO SCH (10:03)
[2017-08-13] MEDS ORDERED: INFLUENZA VIRUS VACCINE 0.5 ML SYG IM* ONE (12:00)
== END 2017-08-13 19:00 | disposition home or self-care (01) | DRG 767 ==
LOC: L-D 12:05 → PP1 08-11 21:06 → EDSTATUS 08-22 12:05
PROVIDERS: ADMIT Obstetrics & Gynecology; ATTEND Obstetrics & Gynecology
PROC: 10E0XZZ Delivery of Products of Conception, External Approach (ICD-10-PCS; principal; 2017-08-11)
PROC: 0UT70ZZ Resection of Bilateral Fallopian Tubes, Open Approach (ICD-10-PCS; 2017-08-11)
PROC: 3E0P3VZ Introduction of Hormone into Female Reproductive, Percutaneous Approach (ICD-10-PCS; 2017-08-11)
DX: O36.5930 Maternal care for other known or suspected poor fetal growth, third trimester, not applicable or unspecified (principal); O41.03X0 Oligohydramnios, third trimester, not applicable or unspecified; Z37.0 Single live birth; Z3A.38 38 weeks gestation of pregnancy; O99.824 Streptococcus B carrier state complicating childbirth; Z30.2 Encounter for sterilization
CPT/HCPCS: 62319; 85025; 85610; 85730; 86592; 86900; 86901; 87340; 88302; 90686; 90715; 90716; J0290; J0690; J1100; J1885; J2175; J2405; J2590; J2765; J3010; J7120